=== PATIENT | female | born 1990 | race Caucasian/White ===

== ENCOUNTER 2022-02-05 20:53 | Inpatient (IN) | payer MEDICARE, MEDICAID, SELFPAY ==
[2022-02-05 20:53] VITALS: BP 116/75; PULSE 67; RESP 18; TEMP 36.9; O2SAT 96
[2022-02-05 21:18] VITALS: BP 116/75; PULSE 67; RESP 18; TEMP 36.9; O2SAT 96
[2022-02-05 21:52] VITALS: BMI 45.7
[2022-02-05] MEDS: hyDROXYzine 25 mg Capsule 50 MG PO (22:19)
[2022-02-05] MEDS: trazodone 50 mg Tablet PO (22:19)
[2022-02-06 06:00] VITALS: BP 128/76; PULSE 74; RESP 17; TEMP 36.9; O2SAT 98
[2022-02-06] MEDS: atorvastatin 40 mg Tablet 10 MG PO (08:40)
[2022-02-06] MEDS: sertraline 50 mg Tablet PO (08:40)
[2022-02-06] MEDS: metformin XR 500 MG Tablet 1000 MG PO (08:40)
[2022-02-06] MEDS: famotidine 20 mg Tablet PO (08:40)
[2022-02-06] MEDS: lamoTRIgine 100 mg Tablet 200 MG PO (08:40)
[2022-02-06] MEDS: acetaminophen 325 mg Tablet 650 MG PO ×2 (08:40→16:44)
[2022-02-06] MEDS: acyclovir 400 mg Tablet PO ×2 (08:41→17:59)
[2022-02-06] MEDS: ibuprofen 600 mg Tablet PO (10:22)
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
[2022-02-06 14:00] VITALS: BP 107/71; PULSE 74; RESP 18; TEMP 36.9; O2SAT 97
[2022-02-06] MEDS: hyDROXYzine 25 mg Capsule 50 MG PO (16:15)
[2022-02-06 19:39] VITALS: BP 133/76; PULSE 77; RESP 16; TEMP 36.8; O2SAT 96
[2022-02-07] MEDS: hyDROXYzine 25 mg Capsule 50 MG PO ×3 (00:38→21:27)
[2022-02-07] MEDS: trazodone 50 mg Tablet PO ×2 (00:39→21:28)
--- NOTE | 2022-02-07 00:41 | PC.NURSE ---
Trazodone 50mg and Vistaril 50mg given for sleep and anxiety.
[2022-02-07 06:00] VITALS: BP 121/71; PULSE 79; RESP 18; TEMP 36.6; O2SAT 97
[2022-02-07] MEDS: atorvastatin 40 mg Tablet 10 MG PO (08:08)
[2022-02-07] MEDS: famotidine 20 mg Tablet PO (08:08)
[2022-02-07] MEDS: acyclovir 400 mg Tablet PO ×2 (08:08→20:23)
[2022-02-07] MEDS: sertraline 50 mg Tablet PO (08:09)
[2022-02-07] MEDS: lamoTRIgine 100 mg Tablet 200 MG PO (08:09)
[2022-02-07] MEDS: metformin XR 500 MG Tablet 1000 MG PO (08:09)
[2022-02-07] MEDS: acetaminophen 325 mg Tablet 650 MG PO ×2 (13:25→18:05)
[2022-02-07 14:00] VITALS: BP 104/56; PULSE 71; RESP 16; TEMP 36.6; O2SAT 92
--- NOTE | 2022-02-07 17:13 | W.PM.NPUPNS ---
Subjective NPU Subjective: Patient presents today continuing to report being oblivious to the reason why she is here. We reviewed the 96-hour hold paperwork and her mother seem to indicate concerns in either the medication was not effective or she had been less than adherent to the medication. Given that we have resumed her medication at original doses, and there have been no signs of psychosis since she has been here, we will continue at current dose and the psychoeducation of the critical need for medication adherence. She initially was not speaking with mother but has been speaking with her recently about planning for discharge. Mental Status Exam MSE Comments: This is an obese white female in hospital scrubs with adequate grooming and eye contact. No abnormal movements except for mild psychomotor retardation. Cooperative with exam in no acute distress. Speech was slightly decreased rate and volume. Mood described as fine, affect is congruent. Thought process, organized. Thought content: patient denies suicidal or homicidal ideation, endorses paranoia prior to being admitted and persecutory and paranoid delusions noted and endorses hearing people talking through the gomes when things got quiet but denies visual hallucinations. Attention and concentration are intact and memory appeared reliable but none were formally tested. She is alert and oriented three times. Insight and judgment are limited. Impulse control appears fair. Intellectual ability appears limited. Vitals/I&O/Wt Last Vital Signs Temp 98.1 F 02/07/22 22:00 Pulse 77 02/07/22 22:00 Resp 16 02/07/22 22:00 BP 136/78 02/07/22 22:00 Pulse Ox 94 02/07/22 22:00 O2 Del Method 02/07/22 22:00 A&P Assessment and plan (1) Paranoia: Status: Acute (2) Psychosis: Status: Acute (3) History of schizoaffective disorder: Status: Acute (4) Parent-child relational problem: Status: Acute Plan This is a 31 year old white woman with positive trauma and genetic loading for mental health, addiction and lethality issues who presents with a history of psychosis which began after her son was born 13 years ago reporting recent paranoia and delusions and open to medication changes at this time. 1. Continue current medications 2. Encourage individual, group and milieu therapy 3. Continue q-15 minute check for safety 4. Recommend sober living treatment at the highest level of care to which the patient is willing to commit. Involuntary Hold Information 96 Hour Hold: 96 Hour Involuntary Admission: Yes 96 Hour Hold Ending Date: 02/09/22 Attestations NPU Medical Necessity Statement*: Inpatient hospitalization is medically necessary and the clinically appropriate intervention at this time. We will monitor medications and make changes as indicated. Likely length of stay is 2-4 days Coding Level of Care Code Acute Counter Control Operator for Tierra Fwd Diagnoses Paranoia F22 Psychosis F29 History of schizoaffective disorder Z86.59 Parent-child relational problem Z62.820
[2022-02-07 22:00] VITALS: BP 136/78; PULSE 77; RESP 16; TEMP 36.7; O2SAT 94
[2022-02-08 06:00] VITALS: BP 107/74; PULSE 72; RESP 14; TEMP 36.9; O2SAT 96
[2022-02-08] MEDS: sertraline 50 mg Tablet PO (08:33)
[2022-02-08] MEDS: metformin XR 500 MG Tablet 1000 MG PO (08:34)
[2022-02-08] MEDS: acetaminophen 325 mg Tablet 650 MG PO ×2 (08:34→15:31)
[2022-02-08] MEDS: famotidine 20 mg Tablet PO (08:34)
[2022-02-08] MEDS: CLONazepam 1 mg Tablet PO (08:35)
[2022-02-08] MEDS: lamoTRIgine 100 mg Tablet 200 MG PO (08:35)
[2022-02-08] MEDS: atorvastatin 40 mg Tablet 10 MG PO (08:36)
[2022-02-08] MEDS: acyclovir 400 mg Tablet PO ×3 (08:36→20:11)
--- NOTE | 2022-02-08 10:44 | PC.NURSE ---
Nursing Behavioral Assessment Patient sitting up in bed and states she slept well. Denies any visual or auditory hallucinations. Also denies suicidal and homicidal ideations. Patient states she is worried about being homeless and the homeless jail. States her stomach and back are hurting this morning at a 5 out of a 0-10 scale. Patient calm and cooperative. Patient states she is ready to go home and hoping for discharge today. No other issues or concerns stated at this time.
--- NOTE | 2022-02-08 13:53 | P.NPUPN_ITS ---
Subjective NPU Subjective: Patient presents today reporting that her mind has not changed. She is wanting to stay in this area and try to get a fresh start. She reports that the medications are working fine and that she is hoping to do well down here. She worked with the treatment team and we were able to confirm that [facility] will have a bed for her tomorrow. We discussed discharging her with follow-up at [facility] to the care home in the morning. Mental Status Exam MSE Comments: This is an obese white female in hospital scrubs with adequate grooming and eye contact. No abnormal movements except for mild psychomotor retardation. Cooperative with exam in no acute distress. Speech was slightly decreased rate and volume. Mood described as better, affect is congruent. Thought process, organized. Thought content: patient denies suicidal or homicidal ideation, endorses reduction in delusional content and no persecutory or paranoid delusions noted, denies current auditory and denies visual hallucinations. Attention and concentration are intact and memory appeared reliable but none were formally tested. She is alert and oriented three times. Insight and judgment are limited. Impulse control appears fair. Intellectual ability appears limited. Vitals/I&O/Wt Last Vital Signs Temp 98.3 F 02/08/22 14:00 Pulse 92 02/08/22 14:00 Resp 18 02/08/22 14:00 BP 107/79 02/08/22 14:00 Pulse Ox 96 02/08/22 14:00 O2 Del Method 02/08/22 14:00 A&P Assessment and plan (1) Paranoia: Status: Acute (2) Psychosis: Status: Acute (3) History of schizoaffective disorder: Status: Acute (4) Parent-child relational problem: Status: Acute Plan This is a 31 year old white woman with positive trauma and genetic loading for mental health, addiction and lethality issues who presents with a history of psychosis which began after her son was born 13 years ago reporting recent paranoia and delusions and open to medication changes at this time. 1. Continue current medications 2. Encourage individual, group and milieu therapy 3. Continue q-15 minute check for safety 4. Recommend sober living treatment at the highest level of care to which the patient is willing to commit. Involuntary Hold Information 96 Hour Hold: 96 Hour Involuntary Admission: Yes 96 Hour Hold Ending Date: 02/09/22 Attestations NPU Medical Necessity Statement*: Inpatient hospitalization is medically necessary and the clinically appropriate intervention at this time. We will monitor medications and make changes as indicated. Likely length of stay is 1-3 days Coding Level of Care Code Acute Debt Collection Specialist for Tierra Fwd Diagnoses Paranoia F22 Psychosis F29 History of schizoaffective disorder Z86.59 Parent-child relational problem Z62.820
[2022-02-08 14:00] VITALS: BP 107/79; PULSE 92; RESP 18; TEMP 36.8; O2SAT 96
[2022-02-08] MEDS: hyDROXYzine 25 mg Capsule 50 MG PO (15:32)
[2022-02-08] MEDS: trazodone 50 mg Tablet PO (20:11)
[2022-02-08] MEDS: OLANZapine 5 mg ODT PO (20:11)
[2022-02-08 20:52] VITALS: BP 120/74; PULSE 84; RESP 17; TEMP 36.8; O2SAT 95
[2022-02-09 06:00] VITALS: BP 166/66; PULSE 65; RESP 17; TEMP 37.1; O2SAT 98
[2022-02-09] MEDS: acyclovir 400 mg Tablet PO (08:32)
[2022-02-09] MEDS: sertraline 50 mg Tablet PO (08:32)
[2022-02-09] MEDS: atorvastatin 40 mg Tablet 10 MG PO (08:32)
[2022-02-09] MEDS: CLONazepam 1 mg Tablet PO (08:33)
[2022-02-09] MEDS: famotidine 20 mg Tablet PO (08:33)
[2022-02-09] MEDS: lamoTRIgine 100 mg Tablet 200 MG PO (08:33)
[2022-02-09] MEDS: metformin XR 500 MG Tablet 1000 MG PO (08:33)
--- NOTE | 2022-02-09 08:37 | DCPLANNER ---
Imm was given to pt and rights explained.
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
[2022-02-09 14:05] VITALS: BP 166/66; PULSE 65; RESP 17; TEMP 37.1; O2SAT 98
== END 2022-02-09 14:30 | disposition home or self-care (01) | DRG 885 ==
PROVIDERS: Admitting Provider Family Medicine; Visit Provider Psychiatry & Neurology Psychiatry
DX: F22 Delusional disorders (principal); F29 Unspecified psychosis not due to a substance or known physiological condition; Z86.59 Personal history of other mental and behavioral disorders; Z62.820 Parent-biological child conflict; Z62.810 Personal history of physical and sexual abuse in childhood; Z59.01 Sheltered homelessness; F17.210 Nicotine dependence, cigarettes, uncomplicated
CPT/HCPCS: 97150; 97165; J8499

== ENCOUNTER 2022-03-30 13:12 | Emergency (ER) | payer MEDICARE, MEDICAID, SELFPAY ==
[2022-03-30 13:25] VITALS: BMI 41.5
--- NOTE | 2022-03-30 13:54 | ED_ITS ---
HPI - Extremity Problem General: Chief complaint: Extremity Injury, Upper Stated complaint: Right arm needs rewrapped Time Seen by Provider: 03/30/22 13:53 Source: patient Mode of arrival: ambulatory Limitations: no limitations History of Present Illness: 31-year-old female presents to the ER today for right elbow pain for the last week or so. Patient reports about a week ago she slipped on wet grass landing on her right elbow. Patient went to an ER in [place] and was diagnosed with a right elbow fracture. Patient reports she was placed in a splint however her splint came off. Patient was post to follow-up with Ortho but missed her appointment due to being essentially homeless. Patient reports she is in this area for a while and needs to see Ortho and needs a new splint. Patient reports she still has continued pain. Pain with any range of motion of the right elbow. Reports some swelling also. Denies any numbness or tingling. Review of Systems General: Reports: 10 or more systems reviewed and unremarkable except in HPI and below [facility] ED PFSH: Medical History Diabetes type 2, controlled GERD (gastroesophageal reflux disease) Psychiatric care Social History Smoking and tobacco status: current every day smoker cigarettes Packs smoked per day: 1 Years cigarettes smoked: 19 Female Reproductive History: Date of last menstrual period: 02/26/22 Physical Exam Const: COMMON NORMALS: no acute distress, average body habitus, patient oriented x3, no limitations, healthy appearing, alert and well nourished Resp: COMMON NORMALS: normal respiratory effort and No retractions EFFORT & INSPECTION: Yes able to speak in complete sentences Cardio: COMMON NORMALS: regular rate and regular rhythm RATE: regular rate RHYTHM: regular rhythm Extremity: NARRATIVE EXTREMITY EXAM: Patient has tenderness over the right lateral and medial epicondyle of the right elbow. No obvious swelling. Pain with any range of motion. Neuro: COMMON NORMALS: patient oriented x3 SENSORIUM/ORIENTATION: Yes alert Psych: COMMON NORMALS: cooperative Skin: COMMON NORMALS: no rashes or lesions noted GENERAL SKIN EXAM: no rashes or lesions noted Course ED course: Patient presents for splint replacement. Patient was diagnosed with a right elbow fracture about a week ago after an injury. Patient was seen at [facility]. There is no need for repeat imaging at this time. We will go ahead and replace the splint. MDM - Extremity (Nontraumatic) Medical Decision Making Splint was replaced in the ER today. Discussed with patient she ultimately needs to follow-up with Ortho. We will place a case management referral. I did discuss with patient she will need to get her records from [facility]. Alternate Tylenol and Motrin for pain. Apply ice to reduce any swelling. Patient verbalized understanding and was in agreement with the treatment plan. Critical Care Time Critical Care Time: Critical Care Time: No Discharge Plan Discharge Patient Disposition: Home Clinical Impression: Closed fracture of right elbow Qualifiers: Encounter type: initial encounter Qualified Code(s): S42.401A - Unspecified fracture of lower end of right humerus, initial encounter for closed fracture Condition: Stable Prescriptions: No Action acyclovir 400 mg tablet 400 mg PO BID Lipitor 10 mg tablet 10 mg PO DAILY Belsomra 10 mg tablet 10 mg PO DAILY Klonopin 1 mg tablet 1 mg PO QID PRN (Reason: Anxiety) Pepcid 20 mg tablet 20 mg PO DAILY Ingrezza 80 mg capsule 80 mg PO DAILY Lamictal 200 mg tablet 200 mg PO DAILY metformin 500 mg tablet extended release 24 hr 1,000 mg PO DAILY Centany 2 % ointment 1 applic TOPICAL BID PRN (Reason: Skin Irritation) Rexulti 4 mg tablet 4 mg PO DAILY Vitamin Plus Low Iron 27 mg iron- 1 mg tablet 1 tab PO DAILY Zoloft 50 mg tablet 50 mg PO DAILY Discharge Orders: Discharge ED (Routine); Ordered 03/30/22 Ordered By: Yari Shaw Discharge Diet: Usual diet Discharge Activity: Limit activity as instructed Patient Instructions: Opioid Safety, Pain Management Activity Restrictions/Additional Instructions: Splint placed in the ER. Do not get it wet. Follow-up with Ortho as discussed. Take Tylenol alternate with Motrin for fevers. Return to the ER with new or worsening symptoms. Coding Level of Care Code ED [employer] for [employer]
--- NOTE | 2022-04-02 09:50 | DCPLANNER ---
Addendum entered by Aissatou Goode 04/05/22 14:31: manager human resources received the following message from the front office staff at ortho regarding follow up appointment: My call could not be completed. No vm/mailed letter for pt to call back and schedule wtih Dr. Brown. Patient also needs to attempt to get the imaging to us. Original Note: manager human resources had message to schedule a follow up appointment for patient with ortho. manager human resources sent patients information to the front office staff at ortho. Patients information will be printed and reviewed. Clinic will call patient with appointment information.
== END 2022-03-30 14:22 | disposition home or self-care (01) ==
PROVIDERS: Emergency Provider Physician Assistant
DX: S42.401A Unspecified fracture of lower end of right humerus, initial encounter for closed fracture (principal); Z79.84 Long term (current) use of oral hypoglycemic drugs; E11.9 Type 2 diabetes mellitus without complications; F17.210 Nicotine dependence, cigarettes, uncomplicated; W01.0XXA Fall on same level from slipping, tripping and stumbling without subsequent striking against object, initial encounter
CPT/HCPCS: 99282